=== PATIENT | female | born 1990 | race Two or more races ===

== ENCOUNTER 2022-06-14 12:46 | Emergency (ER) | payer MEDICAID, OTHER ==
[~2022-06-14] VITALS: Ht 167.6 cm; Wt 88.0 kg
[2022-06-14 12:50] VITALS: BP 148/110
== END 2022-06-14 19:23 | disposition left against medical advice (07) ==
LOC: ER 12:46
DX: R45.851 Suicidal ideations (principal); Z20.822 Contact with and (suspected) exposure to COVID-19
CPT/HCPCS: 36415; 80320; 87426